=== PATIENT | male | born 1980 | race Two or more races ===

== ENCOUNTER → 2025-06-08 | Emergency (ER) | payer OTHER ==
[~2025-06-08] VITALS: Ht 175.3 cm; Wt 69.9 kg
[2025-06-08 23:56] VITALS: BP 109/68; O2SAT 98
== END | disposition left against medical advice (07) ==
LOC: ER 21:48
DX: Z53.21 Procedure and treatment not carried out due to patient leaving prior to being seen by health care provider (principal)